=== PATIENT | female | born 1995 | race Caucasian/White ===

== ENCOUNTER → 2018-05-24 | Outpatient (CLI) | payer OTHER ==
[~2018-05-24] MED LIST: DOXY-229 PO; LEVO1IUD2 IY; PANT40TA65 PO
[2018-05-24 14:42] LABS: PLATELET COUNT, AUTOMATED 349 K/uL (150-450)
== END ==
LOC: LAB 14:23
PROVIDERS: ATTEND Nurse Practitioner Family
DX: M34.9 Systemic sclerosis, unspecified (principal); R03.0 Elevated blood-pressure reading, without diagnosis of hypertension
CPT/HCPCS: 36415; 82040; 82247; 82310; 82374; 82435; 82565; 82947; 84075; 84132; 84155; 84295; 84450; 84460; 84520; 85025

== ENCOUNTER → 2018-06-19 | Outpatient (CLI) | payer OTHER ==
--- NOTE | 2018-06-19 16:12 | RADIOLOGY IMAGING REPORT ---
[place]AC[place] [facility] [place] NAME: Mari Navarro : 1995 MR: [id number] V: [id number] EXAM DATE: ORDERING PHYSICIAN: MELVA GARCIA TECHNOLOGIST: [place] [facility] [place]: Mari Navarro : 1995 Visit/Account:[id number] Date of Sevice: 06/19/2018 [facility] TRANSVAGINAL NON-OB HISTORY: Pelvic pain, IUD x3.5 years, spotting and cramping TECHNIQUE: Transvaginal ultrasound pelvis. COMPARISON: None. FINDINGS: Uterus: ; 6.9 cm length x 3.1 cm AP x 3.9 cm transverse. Myometrium: Unremarkable. Endometrium: IUD appears to be in good position within the endometrial canal; double thickness 3.5 mm . Cervix: Grossly negative. Ovaries: Right - 3.6 x 1.7 x 2.6 cm Left - 3 x 1.3 x 1.9 cm Blood flow is documented in each ovary by duplex Doppler ultrasound. Adnexa: Grossly unremarkable. Free pelvic fluid: Is a small amount of fluid in the pelvic cul-de-sac and adjacent to the right ovar y. IMPRESSION: IUD appears to been good position within the endometrial canal Small amount of free fluid in the pelvic cul-de-sac and adjacent to the right ovary Report Dictated By: Masah Rubin MD at 06/19/2018 4:04 PM Report E-Signed By: Masha Rubin MD at 06/19/2018 4:07 PM WSN:[email or web address]
== END ==
LOC: RAD 08:15
PROVIDERS: ATTEND Obstetrics & Gynecology
DX: R18.8 Other ascites (principal); R10.2 Pelvic and perineal pain